=== PATIENT | male | born 2000 | race Asian ===

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

== ENCOUNTER 2021-03-13 22:17 | Emergency (ER) | payer OTHER ==
[~2021-03-13] VITALS: Ht 185.4 cm; Wt 66.2 kg
[2021-03-13 23:12] VITALS: BP 111/69; TEMP 99.9
== END 2021-03-13 23:12 | disposition home or self-care (01) ==
LOC: ED 22:17
DX: J06.9 Acute upper respiratory infection, unspecified (principal); R50.9 Fever, unspecified; F17.290 Nicotine dependence, other tobacco product, uncomplicated; Z20.822 Contact with and (suspected) exposure to COVID-19
CPT/HCPCS: 87502; 87635; 87651; 99283; U0003